=== PATIENT | female | born 1975 | race African-American/Black ===

== ENCOUNTER 2016-07-17 08:17 | Emergency (ER) | payer OTHER ==
[2016-07-17] MEDS ORDERED: KETOROLAC TROMETHAMINE 30 MG/ML SYRINGE. IM ONE (09:30)
[2016-07-17] MEDS ORDERED: DEXAMETHASONE SOD PHOS 20 MG/5 ML VIAL. IM ONE (09:30)
--- NOTE | 2016-07-17 09:49 | PHYS DOC ---
Past Medical History Past Medical History: Anxiety, Depression, Diabetes-Type II, Hypertension, Other Additional Past Medical Histor: CHRONIC BACK PAIN Past Surgical History: Other Additional Past Surgical Histo: THYROIDECTOMY Alcohol Use: None Drug Use: None Adult General Chief Complaint Chief Complaint: LOWER BACK PAIN OR INJURY [facility] HPI Patient is a 40 year old female who presents with acute on chronic low back pain. Her pain is achy, constant, worse with range of motion. She carries chronic low back pain to her mid low back with no radiation. She bent over 4 days ago and stood up and has had worsening low back pain since that incident. She is taking Tylenol and ibuprofen intermittently at home. She used to get steroid injections in her back at an outside facility, but she no longer receives these because they were not working. She plans to see her primary care doctor Sunday get a pain clinic referral here. She denies abdominal pain, fever or chills, nausea or vomiting, dysuria, hematuria, vaginal bleeding or discharge, numbness, tingling, weakness, saddle anesthesia, bowel or bladder dysfunction. Review of Systems Review of Systems Constitutional: Denies fever or chills [] Eyes: Denies change in visual acuity, redness, or eye pain [] HENT: Denies nasal congestion or sore throat [] Respiratory: Denies cough or shortness of breath [] Cardiovascular: No additional information not addressed in HPI [] GI: Denies abdominal pain, nausea, vomiting, bloody stools or diarrhea [] : Denies dysuria or hematuria [] Musculoskeletal: Denies joint pain [] Integument: Denies rash or skin lesions [] Neurologic: Denies headache, focal weakness or sensory changes [] Endocrine: Denies polyuria or polydipsia [] Current Medications Current Medications Current Medications Medications (Trade) Dose Ordered Sig/Linda Start Time Stop Time Status Last Admin Dose Admin Dexamethasone Sodium Phosphate (Decadron) 10 mg 1X ONCE 07/17/16 09:30 07/17/16 09:31 DC 07/17/16 10:04 10 MG Ketorolac Tromethamine (Toradol) 30 mg 1X ONCE 07/17/16 09:30 07/17/16 09:31 DC 07/17/16 10:04 30 MG Allergies Allergies Allergies Coded Allergies Type Severity Reaction Last Updated Verified No Known Drug Allergies 07/17/16 No Physical Exam Physical Exam Constitutional: Well developed, well nourished, no acute distress, non-toxic appearance. [] HENT: Normocephalic, atraumatic, bilateral external ears normal, oropharynx moist, nose normal. [] Eyes: PERRLA, EOMI. [] Neck: Normal range of motion, supple. [] Cardiovascular:Heart rate regular rhythm [] Lungs & Thorax: Bilateral breath sounds clear to auscultation [] Abdomen: Bowel sounds normal, soft, no tenderness. [] Skin: Warm, dry, no erythema, no rash. [] Back: Tenderness along lumbar spine and paraspinal muscles bilaterally with no visual or palpable abnormality, no CVA tenderness. Negative straight leg raise bilaterally [] Extremities: No tenderness, ROM intact, no edema. [] Neurologic: Alert and oriented X 3, normal motor function, normal sensory function, no focal deficits noted. [] Psychologic: Affect normal, judgement normal, mood normal. [] Current Patient Data Vital Signs Vital Signs Date Time Temp Pulse Resp B/P Pulse Ox O2 Delivery O2 Flow Rate FiO2 07/17/16 08:50 97.9 88 18 97 Room Air 97.9 Lab Values Laboratory Tests Test 07/17/16 09:32 Urine Collection Type Unknown Urine Color Yellow Urine Clarity Clear Urine pH 5.0 Urine Specific [place] 1.025 Urine Protein Negativemg/dL (NEG-TRACE) Urine Glucose (UA) Negativemg/dL (NEG) Urine Ketones (Stick) Negativemg/dL (NEG) Urine Blood Negative (NEG) Urine Nitrite Negative (NEG) Urine Bilirubin Negative (NEG) Urine Urobilinogen Dipstick 1.0mg/dL (0.2 mg/dL) Urine Leukocyte Esterase Negative (NEG) Urine RBC Occ/HPF (0-2) Urine WBC 1-4/HPF (0-4) Urine Squamous Epithelial Cells Mod/LPF Urine Bacteria Many/HPF (0-FEW) Urine Mucus Marked/LPF Urine Test Negative (NEG) Course & Med Decision Making Course & Med Decision Making Pertinent Labs and Imaging studies reviewed. (See chart for details) She is feeling better after medications. Urine appears to be contaminated; so will await culture prior to treatment. Will give muscle relaxers for symptomatic management. Return precautions given. She understands and agrees with plan. Michele Disclaimer Dragon Disclaimer This electronic medical record was generated, in whole or in part, using a voice recognition dictation system. Departure Departure Impression: Primary Impression: Low back pain Disposition: 01 HOME, SELF-CARE Condition: STABLE Referrals: REGINA WILSON MD (PCP) Patient Instructions: Back Pain, Adult, Ecjy-vw-Acgi Additional Instructions: Take Tylenol or ibuprofen as needed for moderate pain. Take cyclobenzaprine as needed for severe pain. Do not drink, drive or operate heavy machinery after taking cyclobenzaprine as it may make you sleepy. Follow-up with your primary care doctor. Return for any concerns. Scripts Cyclobenzaprine Hcl 5 Mg Tablet1 Tab PO TID PRN MUSCLE SPASMS #10 TAB Prov:Quentin THAO MD 07/17/16 Problem Qualifiers Primary Impression: Low back pain Chronicity: acute Back pain laterality: midline Sciatica presence: without sciatica Qualified Code: M54.5 - Low back pain Quentin THAO MD Jul 17, 2016 09:49
[2016-07-17 09:53] LABS: BILIRUBIN,URINE NEGATIVE (NEG); GLUCOSE,URINE NEGATIVE (NEG); NITRITE,URINE NEGATIVE (NEG); PROTEIN,URINE NEGATIVE (NEG-TRACE)
[2016-07-17 09:57] LABS: NEG OBC UR NEG; POS OBC UR POS
[2016-07-17 10:00] VITALS: BP 135/81
[2016-07-17 10:22] LABS: BACTERIA,URINE MANY /HPF (0-FEW); RBC,URINE OCC /HPF (0-2); SQUAMOUS EPITHELIAL CELL,UR MOD /LPF
[2016-07-17] MEDS ORDERED: CYCL5TAB PO (10:32)
== END 2016-07-17 10:56 | disposition home or self-care (01) ==
LOC: ER 08:17
DX: M54.5 Low back pain (principal); G89.29 Other chronic pain; I10 Essential (primary) hypertension; E11.9 Type 2 diabetes mellitus without complications
CPT/HCPCS: 81001; 81025; 87086; 96372; 99284; J1100; J1885

== ENCOUNTER → 2017-08-01 | Outpatient (CLI) | payer OTHER | END | disposition home or self-care (01) | LOC: PNCL 10:08 | DX: E11.9 Type 2 diabetes mellitus without complications (principal); M51.27 Other intervertebral disc displacement, lumbosacral region; E03.9 Hypothyroidism, unspecified; F32.9 Major depressive disorder, single episode, unspecified; I10 Essential (primary) hypertension; K21.9 Gastro-esophageal reflux disease without esophagitis; M79.604 Pain in right leg; Z79.84 Long term (current) use of oral hypoglycemic drugs | CPT/HCPCS: 99214 ==

== ENCOUNTER 2017-11-02 02:11 | Emergency (ER) | payer SELFPAY, OTHER | END 2017-11-02 02:33 | disposition home or self-care (01) | LOC: ER 02:11 | DX: J02.8 Acute pharyngitis due to other specified organisms (principal); H92.03 Otalgia, bilateral; E11.9 Type 2 diabetes mellitus without complications; I10 Essential (primary) hypertension | CPT/HCPCS: 99281 ==

== ENCOUNTER 2018-08-16 10:32 | Emergency (ER) | payer OTHER ==
[~2018-08-16] VITALS: Ht 165.1 cm; Wt 77.1 kg
[2018-08-16 10:32] VITALS: BP 164/86
[~2018-08-16 10:32] MED LIST: ACYC400T PO; CYCL5TAB PO; FLUO40CA9 PO; LEVO25TA55 PO; METF10007 PO; PROP10TA PO; QUET300T5 PO
[2018-08-16] MEDS ORDERED: oxyCODONE/APAP 5/325 1 TAB TABLET PO ONE (10:45)
[2018-08-16] MEDS ORDERED: NAPR-514 PO (10:49)
--- NOTE | 2018-08-16 10:50 | PHYS DOC ---
Past Medical History Past Medical History: Diabetes-Type II, Hypertension Additional Past Medical Histor: depression, ocd Past Surgical History: Other Additional Past Surgical Histo: THYROIDECTOMY Alcohol Use: None Drug Use: None Adult General Chief Complaint Chief Complaint: MECHANICAL FALL HPI HPI 42-year-old female slipped in a puddle inside of [employer] and landed on her right side. She complains of right ankle and leg pain. She complains of right hand pain as well. She states essentially she has pain on her entire right side. Not hit her head or lose consciousness. She had a hard time ambulating at the scene. This happened about an hour ago. She describes the pain is severe and unrelenting at this time.[] Review of Systems Review of Systems Constitutional: Denies fever or chills [] Eyes: Denies change in visual acuity, redness, or eye pain [] HENT: Denies nasal congestion or sore throat [] Respiratory: Denies cough or shortness of breath [] Cardiovascular: No additional information not addressed in HPI [] GI: Denies abdominal pain, nausea, vomiting, bloody stools or diarrhea [] : Denies dysuria or hematuria [] Musculoskeletal: Per history of present illness[] Integument: Denies rash or skin lesions [] Neurologic: Denies headache, focal weakness or sensory changes [] Endocrine: Denies polyuria or polydipsia [] All other systems were reviewed and found to be within normal limits, except as documented in this note. Current Medications Current Medications Current Medications Medications (Trade) Dose Ordered Sig/Linda Start Time Stop Time Status Last Admin Dose Admin Oxycodone/ Acetaminophen (Percocet 5/325) 2 tab 1X ONCE 08/16/18 10:45 08/16/18 10:46 UNV Allergies Allergies Allergies Coded Allergies Type Severity Reaction Last Updated Verified No Known Drug Allergies 07/17/16 No Physical Exam Physical Exam Constitutional: Well developed, well nourished, distress is out of proportion to physical exam findings[] HENT: Normocephalic, atraumatic, bilateral external ears normal, oropharynx moist, no oral exudates, nose normal. [] Eyes: PERRLA, EOMI, conjunctiva normal, no discharge. [] Neck: Normal range of motion, no tenderness, supple, no stridor. [] Cardiovascular:Heart rate regular rhythm, no murmur [] Lungs & Thorax: Bilateral breath sounds clear to auscultation [] Abdomen: Bowel sounds normal, soft, no tenderness, no masses, no pulsatile masses. [] Skin: Warm, dry, no erythema, no rash. [] Back: No tenderness, no CVA tenderness. [] Extremities: She is tender to palp on the right ankle however there is no bruising or swelling nor deformity in the area. Her entire right leg is essentially unremarkable. Her right hand is unrevealing her right wrist is unrevealing. She has full range of motion of all of her extremities.[] Neurologic: Alert and oriented X 3, normal motor function, normal sensory function, no focal deficits noted. [] Psychologic: Anxious. [] EKG EKG [] Radiology/Procedures Radiology/Procedures [] Course & Med Decision Making Course & Med Decision Making Pertinent Labs and Imaging studies reviewed. (See chart for details) [ED course: Evaluation reveals a 42-year-old female who appears extremely anxious and in distress out of proportion to her exam. I explained to her that I did not believe any x-rays were indicated at this time. She begged for a pair of Crutches which we will provide her. I will also give her some pain medication while she is in the ED and I'll provide her with anti-inflammatory to take at home.] Dragon Disclaimer Dragon Disclaimer This electronic medical record was generated, in whole or in part, using a voice recognition dictation system. Departure Departure Impression: Primary Impression: Fall due to wet surface Additional Impression: Mild sprain of right ankle Disposition: 01 HOME, SELF-CARE Condition: STABLE Referrals: REGINA WILSON MD (PCP) Patient Instructions: Ankle Sprain, Acute, with Phase I Rehab-SportsMed, Ankle Sprain, Acute, with Phase II Rehab-SportsMed Additional Instructions: Return to the emergency department with any new or concerning symptoms Scripts Naproxen (NAPROXEN) 500 Mg Tablet 1 TAB PO BID PRN for PAIN, #30 TAB 1 Refill Prov: PATRICIA DELANEY 08/16/18 Problem Qualifiers Primary Impression: Fall due to wet surface Encounter type: initial encounter Qualified Codes: W01.0XXA - Fall on same level from slipping, tripping and stumbling without subsequent striking against object, initial encounter Additional Impression: Mild sprain of right ankle Encounter type: initial encounter Qualified Codes: S93.401A - Sprain of unspecified ligament of right ankle, initial encounter PATRICIA DELANEY DO Aug 16, 2018 10:50
== END 2018-08-16 11:07 | disposition home or self-care (01) ==
LOC: ER 10:32
DX: S93.401A Sprain of unspecified ligament of right ankle, initial encounter (principal); F41.9 Anxiety disorder, unspecified; I10 Essential (primary) hypertension; E11.9 Type 2 diabetes mellitus without complications; F32.9 Major depressive disorder, single episode, unspecified; F42.9 Obsessive-compulsive disorder, unspecified; W01.0XXA Fall on same level from slipping, tripping and stumbling without subsequent striking against object, initial encounter; Y93.89 Activity, other specified; Y92.89 Other specified places as the place of occurrence of the external cause; Y99.8 Other external cause status
CPT/HCPCS: 99284

== ENCOUNTER 2018-09-02 09:31 | Emergency (ER) | payer OTHER ==
[~2018-09-02] VITALS: Ht 165.1 cm; Wt 77.1 kg
[~2018-09-02 09:31] MED LIST changes: +NAPR-514 PO
[2018-09-02 09:42] VITALS: BP 133/80
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
[2018-09-02] MEDS ORDERED: KETOROLAC 60 MG/2 ML VIAL. IM ONE (10:15)
--- NOTE | 2018-09-02 11:13 | RAD ---
3 views of the lumbar spine 09/02/2018 INDICATION: Low back pain, acute. COMPARISON STUDY: None Discussion: No evidence of acute fracture or alignment abnormality is identified. Vertebral body heights are maintained. No evidence of spondylolysis or significant spondylolisthesis is seen. No acute soft tissue changes are appreciated. IMPRESSION: No radiographic evidence of acute osseous abnormality involving the lumbar spine. Electronically signed by: Raffaele Vazquez MD (09/02/2018 11:08 AM) [id number]
--- NOTE | 2018-09-02 11:16 | RAD ---
5 views of the cervical spine 09/02/2018 INDICATION: Neck pain. COMPARISON STUDY: None Discussion: No evidence of acute fracture or alignment abnormality is identified. Vertebral body heights and disc spaces are grossly preserved. The atlantoaxial articulation appears to remain intact. No prevertebral soft tissue edema is identified. IMPRESSION: No radiographic evidence of acute osseous abnormality involving the cervical spine Electronically signed by: Raffaele Vazquez MD (09/02/2018 11:11 AM) [id number]
[2018-09-02] MEDS ORDERED: DICL50TA4 PO (11:23)
[2018-09-02] MEDS ORDERED: CYCL10TA2 PO (11:23)
== END 2018-09-02 11:30 | disposition home or self-care (01) ==
LOC: ER 09:31
DX: S16.1XXA Strain of muscle, fascia and tendon at neck level, initial encounter (principal); S39.012A Strain of muscle, fascia and tendon of lower back, initial encounter; I10 Essential (primary) hypertension; E11.9 Type 2 diabetes mellitus without complications; Y04.2XXA Assault by strike against or bumped into by another person, initial encounter; Y93.89 Activity, other specified; Y92.810 Car as the place of occurrence of the external cause; Y99.8 Other external cause status
CPT/HCPCS: 72040; 72100; 96372; 99283; J1885

== ENCOUNTER 2019-09-24 16:44 | Emergency (ER) | payer OTHER, MEDICAID ==
[~2019-09-24] VITALS: Ht 165.1 cm; Wt 63.0 kg
[~2019-09-24 16:44] MED LIST changes: +CYCL10TA2 PO; +DICL50TA4 PO
[2019-09-24 16:49] VITALS: BP 148/93
[2019-09-24] MEDS ORDERED: GABA300C18 PO (17:17)
--- NOTE | 2019-09-24 17:18 | PHYS DOC ---
Past Medical History Past Medical History: Anxiety, Depression, Diabetes-Type II, Hypertension Additional Past Medical Histor: OCD Past Surgical History: Other Additional Past Surgical Histo: THYROIDECTOMY Smoking Status: Current Every Day Smoker Alcohol Use: None Drug Use: None General Adult EDM: Chief Complaint: HAND PROBLEM HPI: HPI: Patient is a 43 year old female with a history of anxiety, diabetes type 2, hypertension, who presents the ED today complaining of bilateral hand pain worse on range of motion, symptoms have been going on for 2 days though today she has no symptoms. Patient states she has taken ibuprofen and Tylenol with no relief despite having no pain in the ED right now. She describes the pain as sharp and intermittent. Denies any injury Review of Systems: Review of Systems: Constitutional: Denies fever or chills. [] Musculoskeletal: Reports bilateral hand pain Integument: Denies rash. [] Neurologic: Denies headache, focal weakness or sensory changes. [] Lymphatic: Denies swollen glands. [] Psychiatric: Denies depression or anxiety. [] Heart Score: Risk Factors: Risk Factors: DM, Current or recent (<one month) smoker, HTN, HLP, family history of CAD, obesity. Risk Scores: Score 0 - 3: 2.5% MACE over next 6 weeks - Discharge Home Score 4 - 6: 20.3% MACE over next 6 weeks - Admit for Clinical Observation Score 7 - 10: 72.7% MACE over next 6 weeks - Early Invasive Strategies Allergies: Allergies: Allergies Coded Allergies Type Severity Reaction Last Updated Verified No Known Drug Allergies 07/17/16 No Physical Exam: PE: Constitutional: Well developed, well nourished, no acute distress, non-toxic appearance. [] Skin: Warm, dry, no erythema, no rash. [] Back: No tenderness, no CVA tenderness. [] Extremities: No tenderness, no cyanosis, no clubbing, ROM intact, no edema. Adequate sensation to bilateral upper extremities. Neurologic: Alert and oriented X 3, normal motor function, normal sensory function, no focal deficits noted. [] Psychologic: Affect normal, judgement normal, mood normal. [] Current Patient Data: Vital Signs: Vital Signs Date Time Temp Pulse Resp B/P (MAP) Pulse Ox O2 Delivery O2 Flow Rate FiO2 09/24/19 16:49 98.9 110 16 148/93 (111) 97 Room Air 98.9 EKG: EKG: [] Radiology/Procedures: Radiology/Procedures: [] Course & Med Decision Making: Course & Med Decision Making Pertinent Labs and Imaging studies reviewed. (See chart for details) This is a 43-year-old female patient presenting to the ED today with bilateral hand pain, history of diabetes type 2. Discharged on gabapentin. Follow-up with PCP in 1 to 2 weeks Michele Disclaimer: Michele Disclaimer: This electronic medical record was generated, in whole or in part, using a voice recognition dictation system. Departure Departure Impression: Primary Impression: Neuropathic pain of hand Qualified Codes: M79.2 - Neuralgia and neuritis, unspecified Additional Impression: Arthritis Disposition: HOME, SELF-CARE Condition: STABLE Patient Instructions: Pain, Neuropathic-Brief Additional Instructions: Please take the prescribed medications as ordered. Follow-up with your own doctor in 1 to 2 weeks Scripts Gabapentin (GABAPENTIN ) 300 Mg Capsule 300 MG PO TID for NEUROGENIC PAIN, #20 CAP Prov: ODIN MILLER APRN 09/24/19 ODIN MILLER APRN Sep 24, 2019 17:18
== END 2019-09-24 17:19 | disposition home or self-care (01) ==
LOC: ER 16:44
DX: M79.2 Neuralgia and neuritis, unspecified (principal); M19.042 Primary osteoarthritis, left hand; M19.041 Primary osteoarthritis, right hand; M79.641 Pain in right hand; M79.642 Pain in left hand; F41.9 Anxiety disorder, unspecified; I10 Essential (primary) hypertension; E11.9 Type 2 diabetes mellitus without complications; F32.9 Major depressive disorder, single episode, unspecified; F17.200 Nicotine dependence, unspecified, uncomplicated; Z98.890 Other specified postprocedural states
CPT/HCPCS: 99283